=== PATIENT | male | born 1995 | race Caucasian/White ===

== ENCOUNTER 2016-03-24 14:20 | Emergency (ER) | payer BC ==
[2016-03-24] MEDS ORDERED: DIPHTH,PERTUSS(ACELL),TET VAC 0.5 ML VIAL IM ONE ×2 (14:36→14:37)
--- NOTE | 2016-03-24 14:52 | ERNOTE ---
Medical Problem HPI - Narrative Date of Service: 03/24/16 - General Chief Complaint: Laceration Time Seen by Provider: 03/24/16 14:44 Source: patient Exam Limitations: no limitations - Immun/Allergies/Home Medications Allergies/Adverse Reactions: Allergies No Known Allergies Allergy (Unverified 03/24/16 14:28) Home Medications: HOME MEDICATIONS Cephalexin Monohydrate [Keflex] 500 mg PO Q12H #14 cap 03/24/16 [Last Taken Unknown] - History of Present History Narrative: Patient presents to the ER with a fall and injury to the lower aspect of his outer lip. Patient says he was at [facility] he slipped fell hit ground. Denies any loss of consciousness but then noticed that he was bleeding from the mouth. But into the mirror and he saw a laceration/gash at the lower aspect of his lip. There is also a laceration in her aspect of the lower lip as well. He is unsure of his tetanus shot. Denies any neck pain denies any headache once again denies any loss of consciousness. Denies any chest pain or shortness of breath. No headache or dizziness this fall occurred because he slipped. He denies any other issue at this point time Date (Duration): 03/24/16 Severity: mild Review of Systems - Review of Systems Constitutional: Present: no symptoms reported, fever, chills Respiratory: Absent: shortness of breath Cardiology: Absent: chest pain Gastrointestinal/Abdominal: Absent: nausea, vomiting Neurological: Absent: headache, dizziness/light-headedness, seizure, weakness, numbness, tingling All Other Systems: All systems neg except as marked - Patient's Past Medical History Patient History - Medical: No pertinent hx Patient History - Cancer: No Hx of Cancer Patient History - Surgical Procedures: No surgical history - Social History Smoking Status: Never smoker Have you smoked in the past 12 months: No Physical Exam - Physical Exam General Appearance: Present: wd/wn, alert, no apparent distress Ears, Nose, Throat: Present: normal ENT inspection, normal pharynx, other - patient has a laceration under the lower lip does not cross the vermilion border , horizontal measures 4 cm in length. Patient also has a laceration in the inner aspect of the lower lip which measures 3 cm. No other lacerations seen. Dental/teeth are all intact. Good closure of the jaw especially at the TMJ Neck: Present: normal inspection, nontender, supple Respiratory: Present: no respiratory distress, normal breath sounds, no accessory muscle use, chest nontender, lungs clear Cardiovascular/Chest: Present: regular rate, rhythm, no murmur, normal peripheral pulses Back Exam: Present: normal inspection, no CVA tenderness Neurological Exam: Present: alert, oriented, normal mood/affect, no motor/ sensory deficits Skin Exam: Present: normal color, warm/dry Lymphatic Exam: Present: no adenopathy ED Progress - Vital Signs Patient's Vital Signs:: I have reviewed the patient's vital signs. Vital Signs: Vital Signs 03/24/16 14:25 Temperature 35.8 C L Pulse Rate 113 H Respiratory 14 Rate Blood Pressure 170/104 O2 Sat by Pulse 97 Oximetry - Progress/Reassessment Chief Complaint: Laceration Procedures Face Date and Time: On 03/24/2016 on 5:55 PM Anesthesia: Lidocaine w/ Epi Length of Repair/Wound (cm): 4 Wound's Depth/Shape: superficial - outer aspect of lower lip horizontal in nature Wound Explored: clean Wound Intervention: irrigated w/saline Wound Repaired With: sutures Suture Size/Type: 5-0, nylon Number of Sutures: 4 Layer Closure: Simple Complications: Pt markell procedure well Comment: Patient had his inner lip horizontal laceration measuring 3 cm, with saline lidocaine with epi was used, running stitch of 5-0 Vicryl was done with closure of the wound patient tolerated procedure well. Departure - Departure Clinical Impression: Laceration of lip Disposition: Home self-care Condition: Good Instructions: Laceration Care, Adult, [id number], Mouth Laceration Additional Instructions: Remove sutures on the outer aspect of the lower lip in 7 days. Clean Mouthwash gargle and to you eat Return back to ER with any change or worsening symptoms Prescriptions: Cephalexin Monohydrate [Keflex] 500 mg PO Q12H #14 cap
[2016-03-24 18:36] VITALS: BP 140/72
== END 2016-03-24 18:15 | disposition home or self-care (01) ==
LOC: ER 14:20
PROC: 0CQ1XZZ Repair Lower Lip, External Approach (ICD-10-PCS; principal; 2016-03-24)
DX: S01.511A Laceration without foreign body of lip, initial encounter (principal); W19.XXXA Unspecified fall, initial encounter; Y92.481 Parking lot as the place of occurrence of the external cause; Z23 Encounter for immunization

== ENCOUNTER 2016-03-31 11:59 | Emergency (ER) | payer BC ==
[2016-03-31 12:00] VITALS: BP 140/72
== END 2016-03-31 12:48 | disposition home or self-care (01) ==
LOC: ER 11:59
DX: Z48.02 Encounter for removal of sutures (principal)

== ENCOUNTER 2020-04-22 03:09 | Inpatient (IN) ==
[2020-04-22] MEDS ORDERED: ONDANSETRON HCL/PF 2 MG/ML VIAL IV ONE ×2 (03:32→04:19)
[2020-04-22] MEDS ORDERED: NORMAL SALINE 1,000 ML IV ONE ×3 (03:34→07:53)
--- NOTE | 2020-04-22 03:40 | ERNOTE ---
Chest Pain/Cardiac HPI Time Seen by Provider: 04/22/20 03:23 Source: patient, family Exam Limitations: clinical condition Allergies/Adverse Reactions: Allergies No Known Allergies Allergy (Verified 04/22/20 09:25) Home Medications: HOME MEDICATIONS NK 09/28/19 [Last Taken Unknown] Narrative: Patient presents with nausea and vomiting. His sister states that they were going to work about 9:00 PM and he called his boss and told him he could not come in due to epigastric and lower substernal pain. He then began to have nausea and vomiting and has not been able to keep anything down since that time. Timing: getting worse Severity/Quality: moderate, severe Location: substernal, epigastric Chest Pain Radiation: no radiation Activities at Onset: none Modifying Factors - Improves: Present: nothing Review of Systems - Review of Systems Constitutional: Absent: recent illness ENT: Absent: nose congestion, nasal drainage Respiratory: Absent: shortness of breath Gastrointestinal/Abdominal: Present: See HPI, nausea, vomiting, diarrhea Genitourinary: Absent: dysuria Musculoskeletal: Absent: back pain, muscle pain Skin: Absent: rash Medical History (Last Reviewed 04/22/20 @ 03:37 by Guanakito Escalera DO) Laceration of lip (Acute) Onset Date: Unknown Surgical History: Surgical History (Last Reviewed 04/22/20 @ 03:37 by Guanakito Escalera DO) tibia surgery Onset Date: Unknown tonsils and adenoids surgery Onset Date: Unknown tibula surgery Onset Date: Unknown Family History: Family History (Last Reviewed 04/22/20 @ 03:37 by Guanakito Escalera DO) Family/Other Alive and well Father Myocardial infarction Social History: (Last Reviewed 04/22/20 @ 03:37 by Guanakito Escalera DO) Social History: Marital status: Single current occupational status: employed Service: No Tobacco: Smoking Status: Never smoker Alcohol: alcohol intake: never Substance Use: substance use type: does not use Dietary Habits: caffeine: Yes Physical Exam - Physical Exam General Appearance: Present: lethargic - Patient is sitting on the exam table with his eyes closed. He does not answer questions verbally but shakes his head yes or no only after I asked him to open his eyes because I wanted to know if he was awake. He did so but still did not answer any questions verbally. Head Exam: Present: normal inspection, no evidence of injury Neck: Present: normal inspection, nontender, supple Respiratory: Present: no respiratory distress, normal breath sounds, lungs clear Cardiovascular/Chest: Present: regular rate, rhythm, no murmur Gastrointestinal/Abdominal: Present: normal bowel sounds, nondistended, soft, tenderness - Epigastric and left upper quadrant. Absent: guarding, rebound Back Exam: Present: normal inspection, no vertebral tenderness Extremity Exam: Present: normal inspection, no edema Skin Exam: Present: normal color, warm/dry Lymphatic Exam: Present: no adenopathy Progress - Results and Orders Patient's Lab Results:: I have reviewed the patient's lab results. Results and Orders: Laboratory Tests 04/22/20 04/22/20 04/22/20 03:40 03:40 03:40 WBC 16.1 H Hgb 16.4 Hct 44.6 Plt Count 265 Sodium 132 Potassium 3.5 Chloride 94 L Anion Gap 24.4 H BUN 8 Creatinine 0.28 L Est GFR (Non-Af Amer) 420 H Random Glucose 410 H Lactic Acid, Venous 0.6 Calcium 7.0 L Total Bilirubin 2.1 H AST 65 H ALT 63 Total Protein 139.1 H Amylase 800 H Lipase 00129 H SARS-CoV-2 (PCR) 04/22/20 07:49 WBC Hgb Hct Plt Count Sodium Potassium Chloride Anion Gap BUN Creatinine Est GFR (Non-Af Amer) Random Glucose Lactic Acid, Venous Calcium Total Bilirubin AST ALT Total Protein Amylase Lipase SARS-CoV-2 (PCR) Not detected - Vital Signs Patient's Vital Signs:: I have reviewed the patient's vital signs. - EKG EKG #1 EKG: supraventricular tachycardia - sinus, nonspecific ST T wave changes EKG read: Interp. by me - X-Ray X-Ray #1 X-Ray: abdomen Interpretation: Interp. by me X-ray Comments: Mild to moderate stool retention. No free air, no air-fluid levels. No evidence of obstruction. - CT/Ultrasound CT/Ultrasound Narrative: Ultrasound gallbladder: IMPRESSION: No evidence of acute biliary disease. Electronically signed by Trevor Mayorga MD. Trevor Mayorga DO - Progress/Reassessment Progress Note-Subjective: 04/22/20 07:[address] De La Torre she agrees with admit IV fluids and n.p.o. status. Departure Clinical Impression: Pancreatitis Qualifiers: Chronicity: acute Pancreatitis type: other Acute pancreatitis complication: no infection or necrosis Qualified Code(s): K85.80 - Other acute pancreatitis without necrosis or infection - Departure Disposition: Still a patient Condition: Fair
[2020-04-22 03:46] LABS: Hematocrit 44.6 % (42.0-52.0); Hemoglobin 16.4 gm/dL (13.5-18.0); Mean Cell Volume 80.8 fl (78-100); Mean Corpuscular Hemoglobin 29.7 pg (27-31); Mean Corpuscular Hgb Conc 36.8 g/dl (32-36); Mean Platelet Volume 11.5 fl (8-11.3); Neutrophil # 13.4 K/mm3 (1.3-6.0); Neutrophil % 83.4 % (42-75.0); Platelet Count 265 K/mm3 (150-450); Red Blood Count 5.52 M/mm3 (4.7-6.0); Red Cell Distribution Width 13.9 % (11.5-14.0); White Blood Count 16.1 K/mm3 (4.0-10.5)
[2020-04-22 04:06] LABS: Anion Gap 24.4 mmol/L (6.8-13.8); Bilirubin, Total 2.1 mg/dL (0.0-1.1); Ca. Corrected For Albumin 6.7 mg/dL (8.4-10.2); Carbon Dioxide 17.1 mmol/L (24-32.6); Potassium 3.5 mmol/L (3.4-4.6)
[2020-04-22 04:37] LABS: BUN/Creatinine Ratio 28.6 (9.0-21.6)
[2020-04-22] MEDS ORDERED: PROCHLORPERAZINE EDISYLATE 5 MG/ML VIAL IV ONE (05:05)
[2020-04-22 05:33] LABS: Total Protein 139.1 gm/dL (6.2-8.2)
[2020-04-22 07:43] LABS: Urine Bilirubin Negative (NEGATIVE); Urine Ketone 50 mg/dL (NEGATIVE); Urine Nitrite Negative (NEGATIVE); Urine Protein 30 mg/dL (NEGATIVE); Urine Specific Gravity >=1.030 SP.GR. (1.005-1.030); Urine Urobilinogen Normal (NORMAL); Urine pH 5.5 pH (5.0-7.0)
[2020-04-22] MEDS ORDERED: MORPHINE SULFATE 2 MG/ML DISP.SYRIN IV ONE (07:49)
[2020-04-22 08:00] LABS: Urine Appearance Clear (CLEAR); Urine Bacteria None Seen; Urine Blood 5 /ul (NEGATIVE); Urine Color Yellow; Urine RBC TRACE /hpf (0-5); Urine WBC TRACE /hpf (0-5)
[2020-04-22] MEDS ORDERED: MORPHINE SULFATE 2 MG/ML DISP.SYRIN IV PRN (08:06)
[2020-04-22] MEDS: NORMAL SALINE 1,000 ML IV PRN ×3 (09:53→20:17)
[2020-04-22] MEDS ORDERED: ONDANSETRON HCL/PF 2 MG/ML VIAL IV PRN (12:17)
--- NOTE | 2020-04-22 12:42 | HP ---
Chief Complaint - Chief Complaint Date of Service: 04/22/20 Time of Service: 12:34 Chief Complaint: I have epigastric pain and nausea and vomiting. History of Present Illness: 25-year-old male with no significant past medical history was evaluated in the ER for increasing epigastric pain nausea and vomiting that started yesterday. Patient reports while at work he went to the bathroom he moved his bowels and shortly afterwards became nauseous and vomited, later on during the day he developed a significant epigastric and retrosternal pain. The patient was sent home from work but only got worse from his symptoms. His sister who was taking care of him became alarmed when the patient started complaining of tingling in his left upper extremity, she thought he was having a heart attack so to come to the ER. Once in the ER work-up revealed significantly elevated amylase and lipase which indicated acute pancreatitis. The patient denies any history of pancreatitis in the past, he denied consumption of alcohol or any drug use and is not on currently any medications. However his mother informs us that his younger brother had a spontaneous acute pancreatitis at the age of 16 due to hypertriglyceridemia. Of interest this patient was also found to have significantly elevated triglyceride levels above 3000 which would most likely be the cause of this pancreatitis. Medical History (Last Reviewed 04/22/20 @ 09:24 by Virgil Wilson RN) Laceration of lip (Acute) Onset Date: Unknown Surgical History: Surgical History (Last Reviewed 04/22/20 @ 09:24 by Virgil Wilson RN) tibia surgery Onset Date: Unknown tonsils and adenoids surgery Onset Date: Unknown tibula surgery Onset Date: Unknown Family History: Family History (Last Updated 04/22/20 @ 09:42 by Virgil Wilson RN) Family/Other Alive and well Father Myocardial infarction Family history of diabetes mellitus in father Brother Recurrent pancreatitis Grandfather Family history of diabetes mellitus in maternal grandfather Family history of diabetes mellitus in paternal grandfather Social History: (Last Reviewed 04/22/20 @ 09:24 by Virgil Wilson RN) Social History: Marital status: Single current occupational status: employed Service: No Tobacco: Smoking Status: Never smoker Alcohol: alcohol intake: never Substance Use: substance use type: does not use Dietary Habits: caffeine: Yes Peds Patient Hx - Developmental: No Pertinent Hx Peds Patient Hx - Medical: No Pertinent Hx Peds Patient Hx - Cardiac/Respiratory: No Pertinent Hx Peds Patient Hx - Surgical: No Surgical History Patient History - Cancer: No Hx of Cancer Review Of Systems (GEN) - Review of Systems Generalized/Overall Review: Present: Fever EENTM: Present: No Symptoms Reported Respiratory: Present: No Symptoms Reported Cardiac: Present: No Symptoms Reported Abdominal: Present: Nausea, Vomiting, Abdominal Pain - Epigastric pain Genitourinary: Present: No Symptoms Reported Musculoskeletal: Present: No Symptoms Reported Neurological: Present: No Symptoms Reported Skin: Present: No Symptoms Reported Endocrine: Present: No Symptoms Reported Immunizations: IMMUNIZATION HX History of Influenza Vaccine More Information Required Hx Pneumococcal Vaccination More Information Required Allergies/Adverse Reactions: Allergies Allergy/AdvReac Type Severity Reaction Status Date / Time No Known Allergies Allergy Verified 04/22/20 09:25 Home Medications: HOME MEDICATIONS NK 09/28/19 [Last Taken Unknown] Exam - Exam Vital Signs: Vital Signs - Last Taken Temp 37.5 C 04/22/20 09:25 Pulse 89 04/22/20 09:25 Resp 16 04/22/20 09:25 BP 143/81 H 04/22/20 09:25 Pulse Ox 96 04/22/20 09:25 Constitutional: Present: Alert, Oriented x3, Cooperative, Well developed, Well nourished, No distress, Young, Morbidly obese ENT Exam: Present: normal ENT inspection, hearing grossly normal Eye Exam: bilateral eye: normal inspection, PERRL, EOMI Neck: Present: non-tender, full range of motion, supple, normal inspection, trachea midline Back Exam: Present: normal inspection, no CVA tenderness, no vertebral tenderness Breasts: Present: Exam deferred, Nontender Respiratory: Present: chest non-tender, lungs clear, normal breath sounds, no respiratory distress, no accessory muscle use Cardiovascular/Chest: Present: normal peripheral pulses, regular rate, rhythm, no chest tenderness, no edema, no gallop, no JVD, no murmur, no rub Peripheral Pulses: dorsalis-pedis (R): 3+, dorsalis-pedis (L): 3+ Abdomen: Present: Normal bowel sounds, soft, nondistended, no hepatospenomegaly, no masses, obese, tender - Epigastric tenderness., rebound tenderness /Rectal: Present: Exam deferred Extremity: Present: normal range of motion, non-tender, normal inspection, no pedal edema, no calf tenderness, normal capillary refill, pelvis stable Skin Exam: Present: normal color, warm/dry, no cyanosis Lymphatic: Present: no adenopathy Neurologic: Present: starter cup powder mixer II-XII nml as tested, normal cerebellar test, no motor/sensory deficits, alert, normal mood/affect, oriented x 3 Appearance: Present: appropriate appearance, appropriate insight, neat, no memory impairment Eye contact: Present: cooperative, good eye contact, normal speech Thoughts: Present: normal thought pattern, no apparent hallucination Diagnostic Studies: Abnormal Lab Results 04/22/20 04/22/20 04/22/20 Range/Units 03:40 03:40 03:40 WBC 16.1 H (4.0-10.5) K/mm3 MCHC 36.8 H (32-36) g/dl MPV 11.5 H (8-11.3) fl Immature Gran % (Auto) 0.50 H (0.001-0.429) % Immature Gran # (Auto) 0.08 H (0.000-0.0310) K/mm3 Neutrophils % 83.4 H (42-75.0) % Lymphocytes % 10.3 L (20-51) % Neutrophils # 13.4 H (1.3-6.0) K/mm3 Chloride 94 L (97-106) mmol/L Carbon Dioxide 17.1 L (24-32.6) mmol/L Anion Gap 24.4 H (6.8-13.8) mmol/L Creatinine 0.28 L (0.4-1.4) mg/dL Est GFR (Non-Af Amer) 420 H (60-130) mL/min BUN/Creatinine Ratio 28.6 H (9.0-21.6) Random Glucose 410 H (70-110) mg/dL Calcium 7.0 L (7.9-10.9) mg/dL Calcium Adj for Albumin 6.7 L (8.4-10.2) mg/dL Total Bilirubin 2.1 H (0.0-1.1) mg/dL AST 65 H (0-48) U/L Total Protein 139.1 H (6.2-8.2) gm/dL Triglycerides 3179 H (30-200) mg/dL Amylase 800 H (25-115) U/L Lipase 38941 H (73-393) U/L Urine Protein (NEGATIVE) mg/dL Urine Glucose (UA) (NEGATIVE) mg/dL Urine Blood (NEGATIVE) /ul 04/22/20 Range/Units 07:37 WBC (4.0-10.5) K/mm3 MCHC (32-36) g/dl MPV (8-11.3) fl Immature Gran % (Auto) (0.001-0.429) % Immature Gran # (Auto) (0.000-0.0310) K/mm3 Neutrophils % (42-75.0) % Lymphocytes % (20-51) % Neutrophils # (1.3-6.0) K/mm3 Chloride (97-106) mmol/L Carbon Dioxide (24-32.6) mmol/L Anion Gap (6.8-13.8) mmol/L Creatinine (0.4-1.4) mg/dL Est GFR (Non-Af Amer) (60-130) mL/min BUN/Creatinine Ratio (9.0-21.6) Random Glucose (70-110) mg/dL Calcium (7.9-10.9) mg/dL Calcium Adj for Albumin (8.4-10.2) mg/dL Total Bilirubin (0.0-1.1) mg/dL AST (0-48) U/L Total Protein (6.2-8.2) gm/dL Triglycerides (30-200) mg/dL Amylase (25-115) U/L Lipase (73-393) U/L Urine Protein 30 H (NEGATIVE) mg/dL Urine Glucose (UA) >=1000 H (NEGATIVE) mg/dL Urine Blood 5 H (NEGATIVE) /ul Laboratory Results WBC 16.1 K/mm3 (4.0-10.5) H 04/22/20 03:40 RBC 5.52 M/mm3 (4.7-6.0) 04/22/20 03:40 Hgb 16.4 gm/dL (13.5-18.0) 04/22/20 03:40 Hct 44.6 % (42.0-52.0) 04/22/20 03:40 MCV 80.8 fl (78-100) 04/22/20 03:40 MCH 29.7 pg (27-31) 04/22/20 03:40 MCHC 36.8 g/dl (32-36) H 04/22/20 03:40 RDW 13.9 % (11.5-14.0) 04/22/20 03:40 Plt Count 265 K/mm3 (150-450) 04/22/20 03:40 MPV 11.5 fl (8-11.3) H 04/22/20 03:40 Immature Gran % (Auto) 0.50 % (0.001-0.429) H 04/22/20 03:40 Immature Gran # (Auto) 0.08 K/mm3 (0.000-0.0310) H 04/22/20 03:40 Neutrophils % 83.4 % (42-75.0) H 04/22/20 03:40 Lymphocytes % 10.3 % (20-51) L 04/22/20 03:40 Monocytes % 4.9 % (0.0-9) 04/22/20 03:40 Eosinophils % 0.5 % (0.0-3.0) 04/22/20 03:40 Basophils % 0.4 % (0.0-1.0) 04/22/20 03:40 Nucleated RBC % 0.0 k/mm3 (0-1) 04/22/20 03:40 Neutrophils # 13.4 K/mm3 (1.3-6.0) H 04/22/20 03:40 Lymphocytes # 1.66 k/mm3 (1.5-3.5) 04/22/20 03:40 Monocytes # 0.8 k/mm3 (0.0-1.0) 04/22/20 03:40 Eosinophils # 0.1 k/mm3 (0.0-0.7) 04/22/20 03:40 Absolute Basophils 0.1 k/mm3 (0.0-0.1) 04/22/20 03:40 Sodium 132 mmol/L (132-142) 04/22/20 03:40 Plasma Sodium 137 mmol/L (130-142) 04/22/20 03:40 Potassium 3.5 mmol/L (3.4-4.6) 04/22/20 03:40 Chloride 94 mmol/L (97-106) L 04/22/20 03:40 Carbon Dioxide 17.1 mmol/L (24-32.6) L 04/22/20 03:40 Anion Gap 24.4 mmol/L (6.8-13.8) H 04/22/20 03:40 BUN 8 mg/dL (6-23) 04/22/20 03:40 Creatinine 0.28 mg/dL (0.4-1.4) L 04/22/20 03:40 Est GFR (Non-Af Amer) 420 mL/min (60-130) H 04/22/20 03:40 BUN/Creatinine Ratio 28.6 (9.0-21.6) H 04/22/20 03:40 Random Glucose 410 mg/dL (70-110) H 04/22/20 03:40 Lactic Acid, Venous 0.6 mmol/L (0.4-2.0) 04/22/20 03:40 Calcium 7.0 mg/dL (7.9-10.9) L 04/22/20 03:40 Calcium Adj for Albumin 6.7 mg/dL (8.4-10.2) L 04/22/20 03:40 Total Bilirubin 2.1 mg/dL (0.0-1.1) H 04/22/20 03:40 AST 65 U/L (0-48) H 04/22/20 03:40 ALT 63 U/L (19-67) 04/22/20 03:40 Alkaline Phosphatase 89 U/L (50-170) 04/22/20 03:40 Total Protein 139.1 gm/dL (6.2-8.2) H 04/22/20 03:40 Albumin 4.0 gm/dl (3.4-5.0) 04/22/20 03:40 Triglycerides 3179 mg/dL (30-200) H 04/22/20 03:40 Amylase 800 U/L (25-115) H 04/22/20 03:40 Lipase 87520 U/L (73-393) H 04/22/20 03:40 Urine Color Yellow 04/22/20 07:37 Urine Appearance Clear (CLEAR) 04/22/20 07:37 Urine pH 5.5 pH (5.0-7.0) 04/22/20 07:37 Ur Specific [place] >=1.030 SP.GR. (1.005-1.030) 04/22/20 07:37 Urine Protein 30 mg/dL (NEGATIVE) H 04/22/20 07:37 Urine Glucose (UA) >=1000 mg/dL (NEGATIVE) H 04/22/20 07:37 Urine Ketones 50 mg/dL (NEGATIVE) 04/22/20 07:37 Urine Blood 5 /ul (NEGATIVE) H 04/22/20 07:37 Urine Nitrate Negative (NEGATIVE) 04/22/20 07:37 Urine Bilirubin Negative mg/dl (NEGATIVE) 04/22/20 07:37 Urine Urobilinogen Normal EU/dl (NORMAL) 04/22/20 07:37 Ur Leukocyte Esterase Negative /ul (NEGATIVE) 04/22/20 07:37 Urine RBC Trace /hpf (0-5) 04/22/20 07:37 Urine WBC Trace /hpf (0-5) 04/22/20 07:37 Ur Epithelial Cells Trace /hpf (0-5) 04/22/20 07:37 Urine Bacteria None seen (NONE) 04/22/20 07:37 Urine Culture Comments No culture indicated 04/22/20 07:37 SARS-CoV-2 (PCR) Not detected (NotDetected) 04/22/20 07:49 Assessment/Plan - Narrative Narrative: Patient was evaluated medical chart was reviewed and decision to admit for diagnosis and treatment of acute pancreatitis due to hypertriglyceridemia was made. Patient is resting comfortably in his room, he has been treated with IV fluids and pain medications and says for now his pain is controlled. He was informed that it is likely that his condition is caused by very high triglyceride levels which most likely runs in his family given the fact that his younger brother had a similar event, so lifestyle modification with a change in diet and exercise will be necessary once he is discharged. For now he is to stay n.p.o., and receive IV hydration and IV antibiotic given his elevated white count. We will monitor him throughout the weekend with daily amylase and lipase levels and other labs. - Assessment/Plan (1) Acute pancreatitis Problem: Acute (2) Hypertriglyceridemia Problem: Acute (3) Obesity (BMI 30.0-34.9) Problem: Chronic
[2020-04-22] MEDS: PANTOPRAZOLE SODIUM 40 MG in NORMAL SALINE 100 ML IV SCH (12:43)
[2020-04-22] MEDS: PIPERACILLIN SODIUM/TAZOBACTAM 3.375 GM in DEXTROSE 5 % IN WATER 100 ML IV SCH ×4 (13:01→20:07)
[2020-04-22] MEDS ORDERED: INSULIN REGULAR, HUMAN 100 UNITS/ML VIAL SC ONE (15:12)
[2020-04-22 18:09] LABS: Hemoglobin A1C 11.8 % (3.80-5.60)
[2020-04-22] MEDS: SACCHAROMYCES BOULARDII 250 MG CAPSULE PO SCH (20:14)
[2020-04-23] MEDS: PANTOPRAZOLE SODIUM 40 MG in NORMAL SALINE 100 ML IV SCH ×2 (00:08→11:49)
[2020-04-23] MEDS: PIPERACILLIN SODIUM/TAZOBACTAM 3.375 GM in DEXTROSE 5 % IN WATER 100 ML IV SCH ×6 (04:53→20:11)
[2020-04-23 07:28] LABS: Hematocrit 45.9 % (42.0-52.0); Hemoglobin 15.4 gm/dL (13.5-18.0); Mean Cell Volume 82.7 fl (78-100); Mean Corpuscular Hemoglobin 27.7 pg (27-31); Mean Corpuscular Hgb Conc 33.6 g/dl (32-36); Neutrophil # 7.1 K/mm3 (1.3-6.0); Neutrophil % 77.4 % (42-75.0); Platelet Count 203 K/mm3 (150-450); Red Blood Count 5.55 M/mm3 (4.7-6.0); Red Cell Distribution Width 14.4 % (11.5-14.0); White Blood Count 9.2 K/mm3 (4.0-10.5)
[2020-04-23 07:39] LABS: Albumin * 3.1 gm/dl (3.4-5.0); Anion Gap 25.5 mmol/L (6.8-13.8); BUN/Creatinine Ratio 9.6 (9.0-21.6); Bilirubin, Total 1.2 mg/dL (0.0-1.1); Ca. Corrected For Albumin 6.7 mg/dL (8.4-10.2); Calcium * 6.3 mg/dL (7.9-10.9); Carbon Dioxide 14.4 mmol/L (24-32.6); Potassium 2.9 mmol/L (3.4-4.6); Total Protein 6.7 gm/dL (6.2-8.2)
[2020-04-23] MEDS: INSULIN REGULAR, HUMAN 100 UNITS/ML VIAL SC SCH ×3 (07:54→17:18)
[2020-04-23] MEDS: SACCHAROMYCES BOULARDII 250 MG CAPSULE PO SCH ×2 (08:00→20:11)
[2020-04-23] MEDS: NORMAL SALINE 1,000 ML IV PRN ×3 (09:01→22:30)
[2020-04-23] MEDS ORDERED: POTASSIUM CHLORIDE 20 MEQ TABLET.SA PO ONE (10:11)
--- NOTE | 2020-04-23 10:32 | PN ---
Subjective - Date and Time Seen Date: 04/23/20 Time: 10:25 Subjective Narrative: I feel somewhat better but still weak. Objective Objective Narrative: 25-year-old male admitted for acute pancreatitis was evaluated at bedside was found to be afebrile and in no acute distress. Patient reports improvement in his abdominal pain as well as his nausea. Physical exam revealed less epigastric tenderness than when he arrived. The patient has been on bowel rest for the last 24 hours and given the improvement of his symptoms today we will attempt to reinitiate oral intake with a clear liquid diet. He was happy to hear this. Labs this morning revealed resolution of his leukocytosis and a significant decrease of his pancreatic enzymes specifically lipase, these are good signs. During rounds I had a discussion with the patient and inform him that he has confirmed type 2 diabetes, his blood sugars have been elevated since arriving at the hospital and the diagnosis of diabetes was confirmed with A1c above 11. When asked the patient reports being told several years ago that he is prediabetic and was warned to make lifestyle modification in order to progress to diabetes type 2. Patient has a strong family history of type 2 diabetes on both maternal and paternal side, he is also morbidly obese, and has significant hypertriglyceridemia. So it was explained to him that he has multiple risk factors making the control of type 2 diabetes very important. Potassium supplement was ordered to treat hypokalemia most likely resulting from the IV fluids, and repeat CMP was ordered for tomorrow morning for reevaluation. Given his diagnosis of type 2 diabetes I will start the patient on Metformin to be taken daily and check his blood sugar regularly during the hospitalization. It was explained to the patient that he is most likely going to be discharged with a prescription for Metformin and he will have to implement lifestyle modifications that we discussed during rounds this morning, recommendation to jeanna rios with a PCP and a dietitian was made for proper management of his type 2 diabetes. - Review of Systems Generalized/Overall Review: Reports: Weakness EENTM: Reports: No Symptoms Reported Respiratory: Reports: No Symptoms Reported Cardiac: Reports: No Symptoms Reported Abdominal: Reports: Abdominal Pain Genitourinary Symptoms: Reports: No Symptoms Reported Musculoskeletal Complaints: Reports: No Symptoms Reported Neurological: Reports: No Symptoms Reported Skin: Reports: No Symptoms Reported Endocrine: Reports: No Symptoms Reported - Vitals Vitals: Last Vital Signs Temp 36.4 C 04/23/20 06:23 Pulse 108 H 04/23/20 06:23 Resp 16 04/23/20 06:23 BP 142/82 H 04/23/20 06:23 Pulse Ox 93 04/23/20 06:23 - Abnormal Lab Findings Abnormal Lab Findings: Abnormal Lab Results 04/22/20 04/23/20 04/23/20 Range/Units 03:40 07:21 07:21 RDW 14.4 H (11.5-14.0) % Neutrophils % 77.4 H (42-75.0) % Lymphocytes % 13.7 L (20-51) % Neutrophils # 7.1 H (1.3-6.0) K/mm3 Lymphocytes # 1.26 L (1.5-3.5) k/mm3 Potassium 2.9 L (3.4-4.6) mmol/L Carbon Dioxide 14.4 L (24-32.6) mmol/L Anion Gap 25.5 H (6.8-13.8) mmol/L Est GFR (Non-Af Amer) 139 H D (60-130) mL/min Random Glucose 251 H D (70-110) mg/dL Hemoglobin A1c 11.8 H (3.80-5.60) % Calcium 6.3 L (7.9-10.9) mg/dL Calcium Adj for Albumin 6.7 L (8.4-10.2) mg/dL Total Bilirubin 1.2 H (0.0-1.1) mg/dL Albumin 3.1 L (3.4-5.0) gm/dl Amylase 244 H (25-115) U/L Lipase 2795 H (73-393) U/L - Exam Constitutional: Present: Alert, Oriented x3, Cooperative, Well developed, No distress, Young, Morbidly obese ENT Exam: Present: normal ENT inspection, hearing grossly normal Neck: Present: non-tender, full range of motion, supple, normal inspection, trachea midline Breasts: Present: Exam deferred, Nontender Respiratory: Present: chest non-tender, lungs clear, normal breath sounds, no respiratory distress, no accessory muscle use Cardiovascular/Chest: Present: normal peripheral pulses, regular rate, rhythm, no chest tenderness, no edema, no gallop, no JVD, no murmur, no rub Abdomen: Present: Normal bowel sounds, soft, nondistended, no rebound tenderness, no hepatospenomegaly, tender - Mild epigastric tenderness on deep palpation /Rectal: Present: Exam deferred Extremity: Present: normal range of motion, non-tender, normal inspection, no pedal edema, no calf tenderness, normal capillary refill, pelvis stable Skin Exam: Present: normal color, warm/dry, no cyanosis Lymphatic: Present: no adenopathy Neurologic: Present: meeting coordinator II-XII nml as tested, no motor/sensory deficits, alert, normal mood/affect, oriented x 3 Appearance: Present: appropriate appearance, appropriate insight, no memory impairment Eye contact: Present: cooperative, good eye contact, normal speech Thoughts: Present: normal thought pattern, no apparent hallucination Assessment/Plan Plan Narrative: Metformin has been added to the patient's treatment in addition to a sliding scale of regular insulin to manage blood sugars during hospitalization, he will be administered the potassium supplement and repeat labs have been ordered for tomorrow morning for evaluation of electrolytes as well as pancreatic enzymes. - Problems/Diagnosis (1) Acute pancreatitis Problem: Acute (2) Hypertriglyceridemia Problem: Acute (3) Obesity (BMI 30.0-34.9) Problem: Chronic (4) Diabetes 1.5, managed as type 2 Problem: Acute
[2020-04-24] MEDS: PANTOPRAZOLE SODIUM 40 MG in NORMAL SALINE 100 ML IV SCH ×2 (00:16→11:36)
[2020-04-24] MEDS: NORMAL SALINE 1,000 ML IV PRN ×2 (03:23→08:25)
[2020-04-24] MEDS: PIPERACILLIN SODIUM/TAZOBACTAM 3.375 GM in DEXTROSE 5 % IN WATER 100 ML IV SCH ×6 (03:30→19:44)
[2020-04-24] MEDS: INSULIN REGULAR, HUMAN 100 UNITS/ML VIAL SC SCH ×3 (07:14→17:18)
[2020-04-24] MEDS: ACETAMINOPHEN 325 MG TABLET PO PRN ×2 (07:20→13:10)
[2020-04-24 08:13] LABS: Albumin * 2.6 gm/dl (3.4-5.0); Bilirubin, Total 1.2 mg/dL (0.0-1.1); Ca. Corrected For Albumin 6.8 mg/dL (8.4-10.2); Carbon Dioxide 25.8 mmol/L (24-32.6); Potassium 2.8 mmol/L (3.4-4.6); Total Protein 5.3 gm/dL (6.2-8.2)
[2020-04-24] MEDS: SACCHAROMYCES BOULARDII 250 MG CAPSULE PO SCH ×2 (08:27→21:40)
--- NOTE | 2020-04-24 12:47 | PN ---
Subjective - Date and Time Seen Date: 04/24/20 Time: 12:40 Subjective Narrative: I still have nausea and vomiting and weakness. Objective Objective Narrative: 25-year-old male admitted for acute pancreatitis, dehydration, and newly diagnosed type 2 diabetes was evaluated at bedside this morning was found to be febrile and with mild discomfort. Patient has not shown much improvement since admission, yesterday he reported his abdominal pain was better and was ready to start oral intake however shortly after having a clear liquid diet consisting of only Jell-O and water he vomited and developed epigastric discomf ort once again. The patient was placed on n.p.o. once again and since then he reports occasional nausea and has vomited multiple times throughout the night and this morning. We are managing his symptoms with IV Zofran which he says helps, and he reported of his abdominal discomfort and nausea and vomiting after having a bowel movement earlier today. His labs demonstrate significant improvement of his pancreatic enzymes in fact malaise has resolved and lipase is trending down. Leukocytosis has also resolved. However the patient has had multiple bouts of fever over the past 24 hours, so we will optimize his IV antibiotic therapy by adding Flagyl for better coverage we will also administer acetaminophen for fever. His IV fluids were also switched from normal saline to D5W/normal saline with KCl to continue hydrating him and replacing potassium. We will repeat labs in the morning. - Review of Systems Generalized/Overall Review: Reports: Weakness, Fever EENTM: Reports: No Symptoms Reported Respiratory: Reports: No Symptoms Reported Cardiac: Reports: No Symptoms Reported Abdominal: Reports: Nausea, Vomiting, Abdominal Pain Genitourinary Symptoms: Reports: No Symptoms Reported Musculoskeletal Complaints: Reports: No Symptoms Reported Neurological: Reports: No Symptoms Reported Skin: Reports: No Symptoms Reported Endocrine: Reports: No Symptoms Reported - Vitals Vitals: Last Vital Signs Temp 38.5 C H 04/24/20 11:43 Pulse 108 H 04/24/20 11:43 Resp 22 H 04/24/20 11:43 BP 135/76 04/24/20 11:43 Pulse Ox 93 04/24/20 11:43 - Abnormal Lab Findings Abnormal Lab Findings: Abnormal Lab Results 04/24/20 Range/Units 07:24 Potassium 2.8 L (3.4-4.6) mmol/L Est GFR (Non-Af Amer) 135 H (60-130) mL/min Random Glucose 202 H (70-110) mg/dL Calcium 6.0 L (7.9-10.9) mg/dL Calcium Adj for Albumin 6.8 L (8.4-10.2) mg/dL Total Bilirubin 1.2 H (0.0-1.1) mg/dL Alkaline Phosphatase 49 L (50-170) U/L Total Protein 5.3 L (6.2-8.2) gm/dL Albumin 2.6 L (3.4-5.0) gm/dl Lipase 1061 H (73-393) U/L - Exam Constitutional: Present: Alert, Oriented x3, Cooperative, Well developed, No distress, Morbidly obese ENT Exam: Present: normal ENT inspection, hearing grossly normal Neck: Present: non-tender, full range of motion, supple, normal inspection, trachea midline Breasts: Present: Exam deferred, Nontender Respiratory: Present: chest non-tender, lungs clear, normal breath sounds, no respiratory distress, no accessory muscle use Cardiovascular/Chest: Present: normal peripheral pulses, regular rate, rhythm, no chest tenderness, no edema, no gallop, no JVD, no murmur, no rub Abdomen: Present: tender, rebound tenderness, hypoactive /Rectal: Present: Exam deferred Extremity: Present: normal range of motion, non-tender, normal inspection, no pedal edema, no calf tenderness Skin Exam: Present: normal color, warm/dry, no cyanosis Lymphatic: Present: no adenopathy Neurologic: Present: pop singer II-XII nml as tested, no motor/sensory deficits, alert, normal mood/affect, oriented x 3 Appearance: Present: appropriate appearance, appropriate insight, neat, no memory impairment Eye contact: Present: cooperative, good eye contact, normal speech Thoughts: Present: normal thought pattern, no apparent hallucination Assessment/Plan Plan Narrative: We will keep patient in the hospital for an additional day for treatment of IV antibiotics IV hydration and pain control for his acute pancreatitis. Repeat labs have been ordered for tomorrow morning and we will continue to monitor him closely. - Problems/Diagnosis (1) Acute pancreatitis Problem: Acute (2) Hypertriglyceridemia Problem: Acute (3) Obesity (BMI 30.0-34.9) Problem: Chronic (4) Diabetes 1.5, managed as type 2 Problem: Acute (5) Hypokalemia Problem: Acute
[2020-04-24] MEDS ORDERED: POTASSIUM CHLORIDE 20 MEQ TABLET.SA PO ONE (12:48)
[2020-04-24] MEDS: POTASSIUM CHLORIDE 20 MEQ in DEXTROSE 5%-NORMAL SALINE 990 ML IV SCH ×2 (13:00→22:54)
[2020-04-24] MEDS: metroNIDAZOLE/SODIUM CHLORIDE 500 MG/100 ML BAG IV SCH ×2 (13:02→19:45)
[2020-04-25] MEDS: PANTOPRAZOLE SODIUM 40 MG in NORMAL SALINE 100 ML IV SCH ×2 (00:16→11:55)
[2020-04-25] MEDS: PIPERACILLIN SODIUM/TAZOBACTAM 3.375 GM in DEXTROSE 5 % IN WATER 100 ML IV SCH ×6 (03:47→20:18)
[2020-04-25] MEDS: metroNIDAZOLE/SODIUM CHLORIDE 500 MG/100 ML BAG IV SCH ×3 (03:47→20:18)
[2020-04-25 06:16] LABS: Albumin * 2.3 gm/dl (3.4-5.0); BUN/Creatinine Ratio 9.8 (9.0-21.6); Bilirubin, Total 0.8 mg/dL (0.0-1.1); Ca. Corrected For Albumin 7.6 mg/dL (8.4-10.2); Calcium * 6.6 mg/dL (7.9-10.9); Carbon Dioxide 25.1 mmol/L (24-32.6); Total Protein 6.1 gm/dL (6.2-8.2)
[2020-04-25 06:46] LABS: Anion Gap 14.4 mmol/L (6.8-13.8)
[2020-04-25 06:59] LABS: Potassium 2.5 mmol/L (3.4-4.6)
[2020-04-25] MEDS: POTASSIUM CHLORIDE IN WATER 100 ML IV SCH ×4 (07:38→10:42)
[2020-04-25] MEDS: INSULIN REGULAR, HUMAN 100 UNITS/ML VIAL SC SCH ×3 (07:39→17:33)
[2020-04-25] MEDS: POTASSIUM CHLORIDE 20 MEQ in DEXTROSE 5%-NORMAL SALINE 990 ML IV SCH ×3 (08:00→22:40)
[2020-04-25] MEDS: SACCHAROMYCES BOULARDII 250 MG CAPSULE PO SCH ×2 (08:44→20:19)
--- NOTE | 2020-04-25 11:41 | PN ---
Subjective - Date and Time Seen Date: 04/25/20 Time: 11:31 Subjective Narrative: 25-year-old male admitted for acute pancreatitis was evaluated at bedside this morning was found to be afebrile and in no acute distress. Patient has shown some clinical improvement since last rounds, he reports less abdominal pain and a bowel movement this morning that made his abdomen feel better. He denies any nausea or vomiting. However bedside evaluation was significant for left upper quadrant tenderness and mild abdominal distention. Given these findings we will keep him n.p.o. for an additional day. Labs this morning reveal significant hypokalemia so potassium replacement was ordered, will repeat labs in the morning for reevaluation of potassium levels. Lipase continue to decline and is down to 600 this morning which is a great sign. Patient has not had any recurrence of fever and it appears that the cause of the fever during the weekend was bilateral atelectasis due to his hypoactivity, so he was provided with incentive spirometer in order to reinflate his lungs. The patient was also counseled on the importance of staying active even during the hospitalization, he was instructed to get out of bed once every hour to ambulate up and down our halls in order to create movement. He was also provided with education on his new diagnosis of type 2 diabetes, we discussed the appropriate diet and the importance of exercise at least 3-4 times a week. He agreed to make an effort. He was also informed that the abdominal CT confirmed severe acute pancreatitis with peripancreatic fluid that extends into his pelvis and he was also found to have hepatomegaly with diffuse fatty infiltration of his liver making lifestyle modifications very important. A consult to the dietitian has been placed for further education and discussion of the appropriate diet that he needs to follow. Objective Objective Narrative: 25-year-old male admitted for acute pancreatitis, dehydration, and newly diagnosed type 2 diabetes was evaluated at bedside this morning was found to be febrile and with mild discomfort. Patient has not shown much improvement since admission, yesterday he reported his abdominal pain was better and was ready to start oral intake however shortly after having a clear liquid diet consisting of only Jell-O and water he vomited and developed epigastric discomfort once again. The patient was placed on n.p.o. once again and since then he reports occasional nausea and has vomited multiple times throughout the night and this morning. We are managing his symptoms with IV Zofran which he says helps, and he reported of his abdominal discomfort and nausea and vomiting after having a bowel movement earlier today. His labs demonstrate significant improvement of his pancreatic enzymes in fact malaise has resolved and lipase is trending down. Leukocytosis has also resolved. However the patient has had multiple bouts of fever over the past 24 hours, so we will optimize his IV antibiotic therapy by adding Flagyl for better coverage we will also administer acetaminophen for fever. His IV fluids were also switched from normal saline to D5W/normal saline with KCl to continue hydrating him and replacing potassium. We will repeat labs in the morning. - Review of Systems Generalized/Overall Review: Reports: No Symptoms Reported EENTM: Reports: No Symptoms Reported Respiratory: Reports: No Symptoms Reported Cardiac: Reports: No Symptoms Reported Abdominal: Reports: Abdominal Pain Genitourinary Symptoms: Reports: No Symptoms Reported Musculoskeletal Complaints: Reports: No Symptoms Reported Neurological: Reports: No Symptoms Reported Skin: Reports: No Symptoms Reported Endocrine: Reports: No Symptoms Reported - Vitals Vitals: Last Vital Signs Temp 37.5 C 04/25/20 10:32 Pulse 102 H 04/25/20 10:32 Resp 20 04/25/20 10:32 BP 142/76 H 04/25/20 10:32 Pulse Ox 95 04/25/20 10:32 - Abnormal Lab Findings Abnormal Lab Findings: Abnormal Lab Results 04/25/20 Range/Units 05:50 Potassium 2.5 L (3.4-4.6) mmol/L Anion Gap 14.4 H (6.8-13.8) mmol/L Est GFR (Non-Af Amer) 171 H D (60-130) mL/min Random Glucose 201 H (70-110) mg/dL Calcium 6.6 L (7.9-10.9) mg/dL Calcium Adj for Albumin 7.6 L (8.4-10.2) mg/dL Alkaline Phosphatase 47 L (50-170) U/L Total Protein 6.1 L (6.2-8.2) gm/dL Albumin 2.3 L (3.4-5.0) gm/dl Lipase 681 H (73-393) U/L - Exam Constitutional: Present: Alert, Oriented x3, Cooperative, Well developed, No distress, Morbidly obese ENT Exam: Present: normal ENT inspection, hearing grossly normal Neck: Present: non-tender, full range of motion, supple, normal inspection, trachea midline Breasts: Present: Exam deferred, Nontender Respiratory: Present: chest non-tender, no respiratory distress, no accessory muscle use, decreased breath sounds - Decreased breath sounds at bases Cardiovascular/Chest: Present: normal peripheral pulses, regular rate, rhythm, no chest tenderness, no edema, no gallop, no JVD, no murmur, no rub Abdomen: Present: Normal bowel sounds, soft, nontender, nondistended, no rebound tenderness, no hepatospenomegaly, no masses /Rectal: Present: Exam deferred Extremity: Present: normal range of motion, non-tender, normal inspection, no pedal edema, no calf tenderness, normal capillary refill Skin Exam: Present: normal color, warm/dry, no cyanosis Lymphatic: Present: no adenopathy Neurologic: Present: scada engineer II-XII nml as tested, no motor/sensory deficits, alert, normal mood/affect, oriented x 3 Appearance: Present: appropriate appearance, appropriate insight, neat, no memory impairment Eye contact: Present: cooperative, good eye contact, normal speech Thoughts: Present: normal thought pattern, no apparent hallucination Assessment/Plan Plan Narrative: We will repeat his CMP to reevaluate potassium level after replacement to determine whether or not he will need additional doses. If potassium improves will resume IV hydration in order to maintain proper hydration while the patient is n.p.o. Amylase have been ordered for tomorrow morning for reevaluation. - Problems/Diagnosis (1) Acute pancreatitis Problem: Acute (2) Hypertriglyceridemia Problem: Acute (3) Obesity (BMI 30.0-34.9) Problem: Chronic (4) Diabetes 1.5, managed as type 2 Problem: Acute (5) Hypokalemia Problem: Acute (6) Bilateral atelectasis Problem: Acute (7) Hepatomegaly Problem: Acute (8) Nonalcoholic hepatosteatosis Problem: Acute (9) Severe acute pancreatitis Problem: Acute
[2020-04-26] MEDS: PANTOPRAZOLE SODIUM 40 MG in NORMAL SALINE 100 ML IV SCH ×3 (00:54→13:13)
[2020-04-26] MEDS: PIPERACILLIN SODIUM/TAZOBACTAM 3.375 GM in DEXTROSE 5 % IN WATER 100 ML IV SCH ×6 (04:33→20:17)
[2020-04-26] MEDS: metroNIDAZOLE/SODIUM CHLORIDE 500 MG/100 ML BAG IV SCH (04:34)
[2020-04-26 06:28] LABS: Albumin * 2.5 gm/dl (3.4-5.0); Anion Gap 10.6 mmol/L (6.8-13.8); BUN/Creatinine Ratio 6.3 (9.0-21.6); Bilirubin, Total 0.8 mg/dL (0.0-1.1); Ca. Corrected For Albumin 8.5 mg/dL (8.4-10.2); Calcium * 7.6 mg/dL (7.9-10.9); Potassium 2.6 mmol/L (3.4-4.6); Total Protein 6.7 gm/dL (6.2-8.2)
[2020-04-26] MEDS: INSULIN REGULAR, HUMAN 100 UNITS/ML VIAL SC SCH ×3 (06:40→17:07)
[2020-04-26] MEDS: POTASSIUM CHLORIDE 20 MEQ in DEXTROSE 5%-NORMAL SALINE 990 ML IV SCH ×3 (08:04→17:04)
[2020-04-26] MEDS: SACCHAROMYCES BOULARDII 250 MG CAPSULE PO SCH ×2 (08:36→21:38)
[2020-04-26] MEDS: POTASSIUM CHLORIDE 20 MEQ TABLET.SA PO SCH (08:36)
--- NOTE | 2020-04-26 09:37 | PN ---
Subjective - Date and Time Seen Date: 04/26/20 Time: 09:31 Subjective Narrative: My belly feels Better and not As Tender Objective Objective Narrative: 25-year-old male admitted for acute pancreatitis, dehydration, and newly diagnosed type 2 diabetes was evaluated at bedside this morning was found to be febrile and and in no acute distress. Patient looks improved this morning, he reports less abdominal pain and was less tender on physical exam. I believe this can be attributed to him be more active and complying with doctors orders of walking every hour. His abdomen is less distended this morning although he has hypoactive bowel sounds most likely due to the n.p.o. status. We will start a trial of clear liquid diet this morning to see how he tolerates. In the meantime the patient continues to have significant hypokalemia so additional potassium replacement have been ordered and we will repeat a CMP after the replacement to reevaluate potassium levels. Lipase had a slight bump up this morning, I will add an NSAID to his treatment to help with inflammation. - Review of Systems Generalized/Overall Review: Reports: No Symptoms Reported EENTM: Reports: No Symptoms Reported Respiratory: Reports: No Symptoms Reported Cardiac: Reports: No Symptoms Reported Abdominal: Reports: Abdominal Pain - Mild abdominal pain Genitourinary Symptoms: Reports: No Symptoms Reported Musculoskeletal Complaints: Reports: No Symptoms Reported Neurological: Reports: No Symptoms Reported Skin: Reports: No Symptoms Reported Endocrine: Reports: No Symptoms Reported - Vitals Vitals: Last Vital Signs Temp 37.7 C 04/26/20 06:23 Pulse 106 H 04/26/20 06:23 Resp 21 H 04/26/20 06:23 BP 140/80 H 04/26/20 06:23 Pulse Ox 92 L 04/26/20 06:23 - Abnormal Lab Findings Abnormal Lab Findings: Abnormal Lab Results 04/26/20 Range/Units 05:58 Potassium 2.6 L (3.4-4.6) mmol/L BUN 4 L (6-23) mg/dL Est GFR (Non-Af Amer) 162 H (60-130) mL/min BUN/Creatinine Ratio 6.3 L (9.0-21.6) Random Glucose 181 H (70-110) mg/dL Calcium 7.6 L (7.9-10.9) mg/dL Albumin 2.5 L (3.4-5.0) gm/dl Lipase 775 H (73-393) U/L - Exam Constitutional: Present: Alert, Oriented x3, Cooperative, Well developed, Well nourished, No distress, Morbidly obese ENT Exam: Present: normal ENT inspection, hearing grossly normal Neck: Present: non-tender, full range of motion, supple, normal inspection, trachea midline Breasts: Present: Exam deferred, Nontender Respiratory: Present: chest non-tender, lungs clear, normal breath sounds, no respiratory distress, no accessory muscle use Cardiovascular/Chest: Present: normal peripheral pulses, regular rate, rhythm, no chest tenderness, no edema, no gallop, no JVD, no murmur, no rub Abdomen: Present: obese, hypoactive /Rectal: Present: Exam deferred Extremity: Present: normal range of motion, non-tender, normal inspection, no pedal edema, no calf tenderness, normal capillary refill, pelvis stable Skin Exam: Present: normal color, warm/dry, no cyanosis Lymphatic: Present: no adenopathy Neurologic: Present: hand expansion envelope maker II-XII nml as tested, normal cerebellar test, no motor/sensory deficits, alert, normal mood/affect, oriented x 3 Appearance: Present: appropriate appearance, appropriate insight, neat, no memory impairment Eye contact: Present: cooperative, good eye contact, normal speech Thoughts: Present: normal thought pattern, no apparent hallucination Assessment/Plan Plan Narrative: We will follow-up after initiating oral intake trial and follow-up with CMP after potassium replacement. - Problems/Diagnosis (1) Acute pancreatitis Problem: Acute (2) Hypertriglyceridemia Problem: Acute (3) Obesity (BMI 30.0-34.9) Problem: Chronic (4) Diabetes 1.5, managed as type 2 Problem: Acute (5) Hypokalemia Problem: Acute (6) Bilateral atelectasis Problem: Acute (7) Hepatomegaly Problem: Acute (8) Nonalcoholic hepatosteatosis Problem: Acute (9) Severe acute pancreatitis Problem: Acute
[2020-04-26] MEDS: POTASSIUM CHLORIDE IN WATER 100 ML IV SCH ×8 (09:53→19:14)
[2020-04-26] MEDS: NAPROXEN 375 MG TABLET PO SCH ×2 (10:55→21:38)
[2020-04-26 15:11] LABS: Albumin * 2.6 gm/dl (3.4-5.0); Anion Gap 10.3 mmol/L (6.8-13.8); BUN/Creatinine Ratio 7.4 (9.0-21.6); Bilirubin, Total 0.8 mg/dL (0.0-1.1); Ca. Corrected For Albumin 8.8 mg/dL (8.4-10.2); Carbon Dioxide 27.6 mmol/L (24-32.6); Potassium 2.9 mmol/L (3.4-4.6); Total Protein 6.7 gm/dL (6.2-8.2)
[2020-04-27] MEDS: POTASSIUM CHLORIDE 20 MEQ in DEXTROSE 5%-NORMAL SALINE 990 ML IV SCH ×2 (00:12→09:11)
[2020-04-27] MEDS: PANTOPRAZOLE SODIUM 40 MG in NORMAL SALINE 100 ML IV SCH ×2 (01:13→11:39)
[2020-04-27] MEDS: PIPERACILLIN SODIUM/TAZOBACTAM 3.375 GM in DEXTROSE 5 % IN WATER 100 ML IV SCH ×2 (04:18)
[2020-04-27 06:38] LABS: Albumin * 2.6 gm/dl (3.4-5.0); Anion Gap 12.2 mmol/L (6.8-13.8); BUN/Creatinine Ratio 6.8 (9.0-21.6); Bilirubin, Total 0.7 mg/dL (0.0-1.1); Ca. Corrected For Albumin 9.1 mg/dL (8.4-10.2); Calcium * 8.3 mg/dL (7.9-10.9); Potassium 3.2 mmol/L (3.4-4.6); Total Protein 6.8 gm/dL (6.2-8.2)
[2020-04-27] MEDS: INSULIN REGULAR, HUMAN 100 UNITS/ML VIAL SC SCH ×2 (07:51→11:38)
[2020-04-27] MEDS: SACCHAROMYCES BOULARDII 250 MG CAPSULE PO SCH (08:01)
[2020-04-27] MEDS: POTASSIUM CHLORIDE 20 MEQ TABLET.SA PO SCH (08:01)
[2020-04-27] MEDS: NAPROXEN 375 MG TABLET PO SCH (09:12)
[2020-04-27] MEDS ORDERED: POTASSIUM CHLORIDE 20 MEQ TABLET.SA PO ONE (10:28)
--- NOTE | 2020-04-27 11:49 | DS ---
(1) Acute pancreatitis Problem: Acute (2) Hypertriglyceridemia Problem: Chronic (3) Obesity (BMI 30.0-34.9) Problem: Chronic (4) Diabetes 1.5, managed as type 2 Problem: Acute (5) Hypokalemia Problem: Acute (6) Bilateral atelectasis Problem: Acute (7) Hepatomegaly Problem: Chronic (8) Nonalcoholic hepatosteatosis Problem: Chronic (9) Severe acute pancreatitis Problem: Acute Date of Discharge:: 04/27/20 Hospital Course: 25-year-old male admitted for acute pancreatitis due to hypertriglyceridemia and new onset type 2 diabetes was evaluated at bedside this morning was found to be afebrile and in no acute distress. The patient tolerated oral intake without any issues, will progress his diet and there was no nausea or vomiting afterwards. He also reports improvement of his epigastric and left upper quadrant pain and is less tender this morning. Labs this morning showed a slight increase in his pancreatic enzymes however he still below th [place] compared to the 14,000 when he arrived. The patient maintained stable vitals and has had no recurrence of fever or chills. His potassium levels have also improved after potassium replacement yesterday. Therefore decision to discharge the patient home with instructions to follow-up and establish with a doctor was made. The patient was offered the opportunity to establish with my practice and he agreed, so an appointment will be set up for him for follow-up and treatment. He is also ordered to undergo a CMP for evaluation of electrolytes specifically potassium and pancreatic enzymes in 1 week. We will discharge him home with additional days of pain medications in case his pain returns. He was instructed to continue a full liquid diet and to progress his diet slowly over the next few days, he was told to avoid heavy fatty fibrous foods to avoid worsening of his pancreatitis. We will follow-up with him in the outpatient clinic. Procedures Performed: none Results and Findings: Lab Pending Results 04/22/20 03:40: WBC 16.1 H, RBC 5.52, Hgb 16.4, Hct 44.6, MCV 80.8, MCH 29.7, MCHC 36.8 H, RDW 13.9, Plt Count 265, MPV 11.5 H, Immature Gran % (Auto) 0.50 H, Immature Gran # (Auto) 0.08 H, Neutrophils % 83.4 H, Lymphocytes % 10.3 L, Monocytes % 4.9, Eosinophils % 0.5, Basophils % 0.4, Nucleated RBC % 0.0, Neutrophils # 13.4 H, Lymphocytes # 1.66, Monocytes # 0.8, Eosinophils # 0.1, Absolute Basophils 0.1 04/22/20 03:40: Sodium 132, Plasma Sodium 137, Potassium 3.5, Chloride 94 L, Carbon Dioxide 17.1 L, Anion Gap 24.4 H, BUN 8, Creatinine 0.28 L, Est GFR (Non- Af Amer) 420 H, BUN/Creatinine Ratio 28.6 H, Random Glucose 410 H, Calcium 7.0 L, Calcium Adj for Albumin 6.7 L, Total Bilirubin 2.1 H, AST 65 H, ALT 63, Alkaline Phosphatase 89, Total Protein 139.1 H, Albumin 4.0, Amylase 800 H, Lipase 74158 H 04/22/20 03:40: Lactic Acid, Venous 0.6 04/22/20 03:40: Triglycerides 3179 H 04/22/20 03:40: Mean Blood Glucose 292, Hemoglobin A1c 11.8 H 04/22/20 07:37: Urine Color Yellow, Urine Appearance Clear, Urine pH 5.5, Ur Specific [place] >=1.030, Urine Protein 30 H, Urine Glucose (UA) >=1000 H, Urine Ketones 50, Urine Blood 5 H, Urine Nitrate Negative, Urine Bilirubin Negative, Urine Urobilinogen Normal, Ur Leukocyte Esterase Negative, Urine RBC Trace, Urine WBC Trace, Ur Epithelial Cells Trace, Urine Bacteria None seen, Urine Culture Comments No culture indicated 04/22/20 07:49: SARS-CoV-2 (PCR) Not detected 04/23/20 07:21: WBC 9.2 D, RBC 5.55, Hgb 15.4, Hct 45.9, MCV 82.7, MCH 27.7, MCHC 33.6, RDW 14.4 H, Plt Count 203, MPV 11.0, Immature Gran % (Auto) 0.10, Immature Gran # (Auto) 0.01, Neutrophils % 77.4 H, Lymphocytes % 13.7 L, Monocytes % 8.3, Eosinophils % 0.1, Basophils % 0.4, Nucleated RBC % 0.0, Neutrophils # 7.1 H, Lymphocytes # 1.26 L, Monocytes # 0.8, Eosinophils # 0.0, Absolute Basophils 0.0 04/23/20 07:21: Sodium 136, Plasma Sodium 138, Potassium 2.9 L, Chloride 99, Carbon Dioxide 14.4 L, Anion Gap 25.5 H, BUN 7, Creatinine 0.73, Est GFR (Non-Af Amer) 139 H D, BUN/Creatinine Ratio 9.6, Random Glucose 251 H D, Calcium 6.3 L, Calcium Adj for Albumin 6.7 L, Total Bilirubin 1.2 H, AST 26, ALT 34, Alkaline Phosphatase 63, Total Protein 6.7, Albumin 3.1 L, Amylase 244 H, Lipase 2795 H 04/24/20 07:24: Sodium 135, Plasma Sodium 137, Potassium 2.8 L, Chloride 100, Carbon Dioxide 25.8, Anion Gap 12.0, BUN 9, Creatinine 0.75, Est GFR (Non-Af Amer) 135 H, BUN/Creatinine Ratio 12.0, Random Glucose 202 H, Calcium 6.0 L, Calcium Adj for Albumin 6.8 L, Total Bilirubin 1.2 H, AST 21, ALT 35, Alkaline Phosphatase 49 L, Total Protein 5.3 L, Albumin 2.6 L, Amylase 102, Lipase 1061 H 04/25/20 05:50: Sodium 136, Plasma Sodium 138, Potassium 2.5 L, Chloride 99, Carbon Dioxide 25.1, Anion Gap 14.4 H, BUN 6, Creatinine 0.61, Est GFR (Non-Af Amer) 171 H D, BUN/Creatinine Ratio 9.8, Random Glucose 201 H, Calcium 6.6 L, Calcium Adj for Albumin 7.6 L, Total Bilirubin 0.8, AST 22, ALT 28, Alkaline Phosphatase 47 L, Total Protein 6.1 L, Albumin 2.3 L, Lipase 681 H 04/26/20 05:58: Sodium 136, Plasma Sodium 137, Potassium 2.6 L, Chloride 100, Carbon Dioxide 28.0, Anion Gap 10.6, BUN 4 L, Creatinine 0.64, Est GFR (Non-Af Amer) 162 H, BUN/Creatinine Ratio 6.3 L, Random Glucose 181 H, Calcium 7.6 L, Calcium Adj for Albumin 8.5, Total Bilirubin 0.8, AST 21, ALT 24, Alkaline Phosphatase 54, Total Protein 6.7, Albumin 2.5 L, Lipase 775 H 04/26/20 14:38: Sodium 136, Plasma Sodium 138, Potassium 2.9 L, Chloride 101, Carbon Dioxide 27.6, Anion Gap 10.3, BUN 5 L, Creatinine 0.68, Est GFR (Non-Af Amer) 151 H, BUN/Creatinine Ratio 7.4 L, Random Glucose 205 H, Calcium 8.0, Calcium Adj for Albumin 8.8, Total Bilirubin 0.8, AST 23, ALT 25, Alkaline Phosphatase 53, Total Protein 6.7, Albumin 2.6 L 04/27/20 06:15: Sodium 137, Plasma Sodium 139, Potassium 3.2 L, Chloride 101, Carbon Dioxide 27.0, Anion Gap 12.2, BUN 5 L, Creatinine 0.73, Est GFR (Non-Af Amer) 139 H, BUN/Creatinine Ratio 6.8 L, Random Glucose 231 H, Calcium 8.3, Calcium Adj for Albumin 9.1, Total Bilirubin 0.7, AST 23, ALT 25, Alkaline Phosphatase 58, Total Protein 6.8, Albumin 2.6 L, Lipase 920 H Discharge Location: Home Disposition: Home self-care Condition: Fair Face to Face Encounter completed per [facility] Guidelines: No Discharge Activity: Activity as tolerated Discharge Diet: Consistent carbs, Low fat/chol, Full Liquids Additional Patient Instructions (free text): Follow up with . Fax work release to [employer] at [phone] when discharged. Prescriptions (Any new or edited meds): Saccharomyces Boulardii [Florastor] 250 mg PO BID #60 cap Transmission Status: Pending to [facility] metFORMIN HCL [Glucophage Xr] 500 mg PO DAILY #90 tab.sr.24h Transmission Status: Pending to [facility] Naproxen [Naprosyn] 375 mg PO Q12H #20 tab Transmission Status: Pending to [facility] Complete Home Medications List: Complete Home Medication List: Naproxen [Naprosyn] 375 mg PO Q12H #20 tab 04/27/20 Saccharomyces Boulardii [Florastor] 250 mg PO BID #60 cap 04/27/20 metFORMIN HCL [Glucophage Xr] 500 mg PO DAILY #90 tab.sr.24h 04/27/20 Forms: Patient Portal Registration
[2020-04-27 14:56] VITALS: BP 148/80
== END 2020-04-27 14:14 | disposition home or self-care (01) | DRG 439 ==
LOC: ER 03:09 → MS 08:00
PROVIDERS: ADMIT Family Medicine; ATTEND Family Medicine